=== PATIENT | male | born 2005 | race African-American/Black ===

== ENCOUNTER 2024-09-17 06:23 | Emergency (ER) | payer MEDICAID ==
[~2024-09-17] VITALS: Ht 177.8 cm; Wt 70.0 kg
[2024-09-17 06:31] VITALS: BP 124/74; PULSE 49; RESP 16; TEMP 98.4; O2SAT 97
[2024-09-17] MEDS: ACETAMINOPHEN 1000MG/100ML 100 ML IV ONE (08:49)
[2024-09-17] MEDS ORDERED: IBUP-2030 MT (09:07)
== END 2024-09-17 10:04 | disposition home or self-care (01) ==
LOC: ER 06:23
DX: M54.6 Pain in thoracic spine (principal); Z85.71 Personal history of Hodgkin lymphoma; Z98.1 Arthrodesis status
CPT/HCPCS: 72128; 72131; 96365; 99285; J0131